=== PATIENT | female | born 1975 | race Caucasian/White ===

== ENCOUNTER 2016-09-30 07:55 | Emergency (ER) | payer OTHER ==
[~2016-09-30] VITALS: Ht 157.5 cm; Wt 90.7 kg
[~2016-09-30 07:55] MED LIST: IBUPROFEN 800800 M1 PO; IBUPROFEN 800800 MG PO; NORCO 5-325 TA1 EACH PO; PREDNISONE 20 M20 MG PO; TESSALON PERLE100 MG PO
[2016-09-30 07:56] VITALS: BP 176/94
[2016-09-30] MEDS ORDERED: IBUPROFEN 600600 M1 PO (08:55)
[2016-09-30] MEDS ORDERED: NORCO 5-325 TA1 EACH PO (08:55)
== END 2016-09-30 09:08 | disposition home or self-care (01) ==
LOC: ER 07:55
DX: S39.012A Strain of muscle, fascia and tendon of lower back, initial encounter (principal); Z90.89 Acquired absence of other organs; Z90.49 Acquired absence of other specified parts of digestive tract; X58.XXXA Exposure to other specified factors, initial encounter; Y93.89 Activity, other specified; Y92.89 Other specified places as the place of occurrence of the external cause; Y99.9 Unspecified external cause status

== ENCOUNTER 2016-10-07 09:11 | Emergency (ER) | payer OTHER ==
[~2016-10-07] VITALS: Ht 157.5 cm; Wt 90.7 kg
[~2016-10-07 09:11] MED LIST changes: +IBUPROFEN 600600 M1 PO
[2016-10-07 09:12] VITALS: BP 151/91
[2016-10-07] MEDS ORDERED: MEDROLDOSEPACK PO (09:32)
== END 2016-10-07 16:18 ==
LOC: ER 09:11
DX: M54.32 Sciatica, left side (principal); Z90.49 Acquired absence of other specified parts of digestive tract; Z98.890 Other specified postprocedural states

== ENCOUNTER 2017-08-24 16:57 | Emergency (ER) | payer OTHER ==
[~2017-08-24] VITALS: Ht 154.9 cm; Wt 95.3 kg
[~2017-08-24 16:57] MED LIST changes: +MEDROLDOSEPACK PO; +NAPROSYN500 MG PO; +NORFLEX100 MG PO
[2017-08-24] MEDS ORDERED: NORCO 5-325 TA1 EACH PO (17:26)
[2017-09-21] MEDS ORDERED: MOBIC15 MG PO (20:46)
[2017-09-21] MEDS ORDERED: NORCO 5-325 TA1 EACH PO (20:46)
== END 2017-08-24 18:22 | disposition home or self-care (01) ==
LOC: ER 16:57
DX: M65.332 Trigger finger, left middle finger (principal); M65.312 Trigger thumb, left thumb; M79.645 Pain in left finger(s); Z90.49 Acquired absence of other specified parts of digestive tract

== ENCOUNTER 2017-12-07 17:57 | Emergency (ER) | payer OTHER ==
[~2017-12-07] VITALS: Ht 157.5 cm; Wt 97.1 kg
[~2017-12-07 17:57] MED LIST changes: +MOBIC15 MG PO
[2017-12-07 18:58] LABS: URINE BILIRUBIN NEGATIVE (Negative); URINE BLOOD 1+ (Negative); URINE CLARITY CLEAR; URINE COLOR YELLOW; URINE GLUCOSE-RANDOM* NEGATIVE (Negative); URINE KETONES NEGATIVE (Negative); URINE LEUKOCYTES-REFLEX NEGATIVE (Negative); URINE NITRITE-REFLEX NEGATIVE (Negative); URINE PROTEIN (DIPSTICK) NEGATIVE (Negative); URINE SPECIFIC GRAVITY >= 1.030 (1.005-1.035); URINE UROBILINOGEN 0.2 E.U./dl (0.2-1.0)
[2017-12-07 19:30] LABS: CASTS None Seen /LPF (None Seen); MUCUS >6 Heavy strn/LPF (None Seen); SQUAMOUS >10 Many /LPF (0-3); URINE RBC 0-2 Rare /HPF (0-2); URINE WBC-REFLEX 0-5 Rare /HPF (0-5)
[2017-12-07 19:31] LABS: BACTERIA-REFLEX 1-9 Few /HPF (None Seen); CALCIUM OXALATE 0-3 Few /LPF (None Seen)
[2017-12-07] MEDS ORDERED: VALIUM5 MG PO (19:47)
[2017-12-07] MEDS ORDERED: MOBIC15 MG PO (19:47)
[2017-12-07 20:18] VITALS: BP 163/73
== END 2017-12-07 20:15 | disposition home or self-care (01) ==
LOC: ER 17:57
PROVIDERS: Emergency Medicine
DX: M46.1 Sacroiliitis, not elsewhere classified (principal); R35.0 Frequency of micturition; R39.15 Urgency of urination; Z90.49 Acquired absence of other specified parts of digestive tract

== ENCOUNTER 2018-06-11 10:12 | Emergency (ER) | payer OTHER ==
[~2018-06-11] VITALS: Ht 157.5 cm; Wt 90.7 kg
[~2018-06-11 10:12] MED LIST changes: +VALIUM5 MG PO
[2018-06-11] MEDS ORDERED: FLEXERIL PO (10:27)
[2018-06-11] MEDS ORDERED: MEDROLDOSEPACK PO (10:27)
[2018-06-11] MEDS ORDERED: NORCO 5-325 TA1 EACH PO (10:27)
[2018-06-11 10:42] VITALS: BP 154/84
== END 2018-06-11 10:43 | disposition home or self-care (01) ==
LOC: ER 10:12
DX: M54.42 Lumbago with sciatica, left side (principal); Z90.49 Acquired absence of other specified parts of digestive tract

== ENCOUNTER 2018-09-15 16:19 | Emergency (ER) | payer OTHER ==
[~2018-09-15] VITALS: Ht 157.5 cm; Wt 90.7 kg
[~2018-09-15 16:19] MED LIST changes: +FLEXERIL PO
[2018-09-15 16:22] VITALS: BP 165/96
[2018-09-15 17:14] LABS: URINE BILIRUBIN NEGATIVE (Negative); URINE BLOOD 3+ (Negative); URINE CLARITY CLEAR; URINE COLOR YELLOW; URINE GLUCOSE-RANDOM* NEGATIVE (Negative); URINE KETONES NEGATIVE (Negative); URINE LEUKOCYTES-REFLEX NEGATIVE (Negative); URINE NITRITE-REFLEX NEGATIVE (Negative); URINE PROTEIN (DIPSTICK) NEGATIVE (Negative); URINE SPECIFIC GRAVITY >= 1.030 (1.005-1.035); URINE UROBILINOGEN 0.2 E.U./dl (0.2-1.0)
[2018-09-15 17:29] LABS: BACTERIA-REFLEX None Seen /HPF (None Seen); CASTS None Seen /LPF (None Seen); CRYSTALS None Seen /LPF (None Seen); MUCUS >6 Heavy strn/LPF (None Seen); SQUAMOUS 4-10 Moderate /LPF (0-3); URINE RBC 3-10 Few /HPF (0-2); URINE WBC-REFLEX 0-5 Rare /HPF (0-5)
[2018-09-15] MEDS ORDERED: VALIUM5 MG PO (17:49)
[2018-09-15] MEDS ORDERED: MOBIC15 MG PO (17:49)
[2018-09-15] MEDS ORDERED: NORCO 5-325 TA1 EACH PO (17:49)
== END 2018-09-15 17:50 | disposition home or self-care (01) ==
LOC: ER 16:19
PROVIDERS: Emergency Medicine
DX: M46.1 Sacroiliitis, not elsewhere classified (principal)

== ENCOUNTER 2018-10-15 16:09 | Emergency (ER) | payer OTHER ==
[~2018-10-15] VITALS: Ht 157.5 cm; Wt 90.7 kg
[2018-10-15 16:43] VITALS: BP 160/82
== END 2018-10-15 16:44 | disposition home or self-care (01) ==
LOC: ER 16:09
DX: R05 Cough (principal); J02.9 Acute pharyngitis, unspecified; R51 Headache; Z90.49 Acquired absence of other specified parts of digestive tract

== ENCOUNTER 2021-04-24 10:57 | Emergency (ER) | payer OTHER ==
[~2021-04-24] VITALS: Ht 157.5 cm; Wt 86.2 kg
[2021-04-24 11:22] LABS: ABSOLUTE NEUTROPHILS 8.9 thou/uL (1.4-8.2); BASOPHILS 0.6 % (0.0-2.0); EOSINOPHILS 0.7 % (0.0-3.0); HEMATOCRIT 42.1 % (37.0-47.0); HEMOGLOBIN 13.7 gm/dL (12.0-15.0); LYMPHOCYTES 14.1 % (24.0-44.0); MCHC 32.6 g/dL (28.0-37.0); MCV 85.8 fL (80.0-100.0); MONOCYTES 8.2 % (1.0-8.0); PLATELET COUNT 269 thou/uL (150-400); POLYS 76.4 % (36.0-66.0); RDW 16.4 % (10.5-14.5); WBC 11.6 thou/uL (4.0-11.0)
[2021-04-24 11:29] LABS: CALCIUM 8.8 mg/dL (8.5-10.1); CREATININE 0.8 mg/dL (0.6-1.0); POTASSIUM 4.2 mmol/L (3.5-5.1)
[2021-04-24 11:34] LABS: URINE BILIRUBIN NEGATIVE (Negative); URINE BLOOD 1+ (Negative); URINE COLOR YELLOW; URINE GLUCOSE-RANDOM* NEGATIVE (Negative); URINE KETONES TRACE (Negative); URINE LEUKOCYTES-REFLEX NEGATIVE (Negative); URINE NITRITE-REFLEX NEGATIVE (Negative); URINE PROTEIN (DIPSTICK) NEGATIVE (Negative); URINE SPECIFIC GRAVITY >= 1.030 (1.005-1.035); URINE UROBILINOGEN 0.2 E.U./dl (0.2-1.0)
[2021-04-24 11:36] LABS: URINE CLARITY CLOUDY
[2021-04-24 11:36] LABS: ALBUMIN 3.4 g/dL (3.4-5.0); TOTAL BILIRUBIN 0.4 mg/dL (0.2-1.0); TOTAL PROTEIN 8.1 g/dL (6.4-8.2)
[2021-04-24 12:34] VITALS: BP 158/78
[2021-04-24] MEDS ORDERED: PEPCID40 MG PO (13:08)
[2021-04-24 13:20] LABS: CASTS None Seen /LPF (None Seen); MUCUS >6 Heavy strn/LPF (None Seen); SQUAMOUS >10 Many /LPF (0-3)
[2021-04-24 13:21] LABS: BACTERIA-REFLEX 1-9 Few /HPF (None Seen); URINE RBC 1-2 Rare /HPF (NONE SEEN); URINE WBC-REFLEX 0-5 Rare /HPF (0-5)
--- NOTE | 2021-04-24 14:00 | EKG ---
[address] [place] [address] ELECTROCARDIOGRAM REPORT Name: RUBY PORTER Room #: [facility]#: [id number] Admission: 04/24/21 Attend Phys: Discharge: 04/24/21 Date of : 71 Report #: [id number] [facility] ED Test Date: 2021-04-24 Test Time: 13:12:50 Pat Name: RUBY PORTER Department: Room: Gender: F Web Retailer: NANCY : 1975 Requested By: Chong [place] Order Number: [id number] MD: Ronnell Ha Measurements Intervals [place] Rate: 88 P: 34 WA: 130 QRS: 20 QRSD: 91 T: 22 QT: 355 QTc: 430 Interpretive Statements Sinus rhythm No previous ECG available for comparison Electronically Signed On 04-24-2021 13:59:58 [employer]ION [employer]NAGER by Ronnell Ha [email or web address] <ELECTRONICALLY SIGNED> By: Ronnell Ha MD, [facility] 04/24/21 1359 1312 1312 Ronnell Ha MD, FACC /EPI
== END 2021-04-24 13:37 | disposition home or self-care (01) ==
LOC: ER 10:57
PROVIDERS: Student in an Organized Health Care Education/Training Program
DX: R10.13 Epigastric pain (principal); Z90.49 Acquired absence of other specified parts of digestive tract